=== PATIENT | male | born 2000 | race Two or more races ===

== ENCOUNTER 2021-10-17 17:36 | Emergency (ER) | payer BC, SELFPAY ==
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
[2021-10-17 17:56] VITALS: BP 138/82; PULSE 86; RESP 17; TEMP 37.2; O2SAT 100
--- NOTE | 2021-10-17 18:11 | PC.NURSE ---
1800-- VINEYARD TENDER and pt together decided to have xrays, and we informed him that we will have to send him to the [place] [facility] (Closed) office due to us not having a medical radiation therapist this weekend. report given to abdi pereyra.
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
== END 2021-10-17 19:02 | disposition home or self-care (01) ==
PROVIDERS: Emergency Provider Nurse Practitioner Family
DX: S16.1XXA Strain of muscle, fascia and tendon at neck level, initial encounter (principal); V43.62XA Car passenger injured in collision with other type car in traffic accident, initial encounter; M79.671 Pain in right foot
CPT/HCPCS: 73610; 99213; G0463

== ENCOUNTER 2021-12-21 15:00 | Outpatient (RCR) | payer BC, SELFPAY ==
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
--- NOTE | 2021-10-28 09:35 | PCPTNOTE ---
Patient called & cancelled scheduled appointment this date due to having to work.
--- NOTE | 2021-11-05 08:55 | PCPTNOTE ---
Patient did not show up for scheduled appointment this date. Called and spoke with Pt. He apologized for forgetting about appointment. Reminded Pt of upcoming appointment on 11/09/21 @12:30.
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
--- NOTE | 2021-12-14 09:20 | PCPTNOTE ---
Addendum entered by Renee Edwards, CLIENT ACCOUNT MANAGER 12/14/21 10:54: Patient called back to reschedule appointment due to adjustment with his work schedule being able to attend. Original Note: Patient called & cancelled scheduled appointment this date due to having to work so needed to reschedule appointment.
--- NOTE | 2021-12-20 10:39 | PCPTNOTE ---
Patient did not show up for scheduled appointment this date; called patient who stated he didn't realize he had an appointment for today with his re-eval being tomorrow.
--- NOTE | 2021-12-21 16:13 | PTOPEVAL ---
PHYSICAL THERAPY PROGRESS REPORT. Thank you for referring Dixon Moore to [facility].? The patient will be seen for a follow up, in needed. Please review, sign, date and return this plan of care MAGGI. I agree with and certify that the following plan of care is medically necessary. Referring Physician Date Attending Provider: Julia Winn, PATRICIO *PT Outpatient Evaluation Start: 10/26/21 Evaluation Information Diagnosis neck pain Onset 10/15/21 Subjective Information Pt reports overall he has Query Text:As Reported By Patient/ improved a lot. He states he Family is still having headaches, 3-4 times a week. He states he is moving his neck everyday. Pain Assessment Neck Reported Pain Level 0 Greatest Pain Intensity 6 Cervical ROM Cervical Flexion (0-60) 40 active Cervical Extension (0-70) 45 active Cervical Lateral Flexion Right (0-50) 38 active Cervical Lateral Flexion Right (0-50) 45 passive Cervical Lateral Flexion Left (0-50) 28 active Cervical Lateral Flexion Left (0-50) 45 passive Cervical Rotation Right (0-90) 70 active Cervical Rotation Right (0-90) 70 passive Cervical Rotation Left (0-90) 65 active Cervical Rotation Left (0-90) 70 passive Upper Extremity Muscle Strength Testing General Upper Extremity Strength WFL/Left,WFL/Right Gross Upper Extremity Strength Comments BUE grossly 5/5 Palpation Assessment Palpation mild tenderness in joellen suboccipitals Safety Assessment Factors Affecting Safety No Concerns General Exercise Exercise Description - extensive discussion on Query Text:Record Sets, Reps, limiting fear avoidance Resistance, and Position behaviors. - education on guarding behaviors being a contributing factor in tension headaches Manual Therapy Manual Therapy Side Bilateral Manual Therapy Location cervical/ thoracic Patient Position Prone Manual Therapy Treatment Soft Tissue Mobilization Movement Findings Moderate Hypomobility,Severe Hypomobility Treatment Comments -STM to Upper traps, Query Text:Include Technique and paraspinal and suboccipital Result of Technique region to decreased pain, improved functional mobility, and tissue extensibility - Grade 3 cervical side glide mobs PT Clinical Summary Dixon presents to therapy today for his progress report
--- NOTE | 2022-01-04 14:35 | PCPTNOTE ---
Attending Provider: FEROZ PantojaC Patient:Dixon Moore Date of :2000 PHYSICAL THERAPY DISCHARGE SUMMARY. Patient presents to therapy for his progress report on 12/21/21 and was doing well. He was apprehensive to completly discharge from therapy. He called the clinic today and requested to be discharged as he is still doing great. Patient?s initial visit was on 10/26/2021 and he had a total of 13 visits. The goals have been met.
== END 2022-01-06 13:12 | disposition home or self-care (01) ==
LOC: ANHPT 15:00
PROVIDERS: PCP Internal Medicine; Referring Provider Nurse Practitioner; Visit Provider Nurse Practitioner
DX: M54.2 Cervicalgia (principal)
CPT/HCPCS: 97014; 97110; 97112; 97140; 97161; 97530; 99199; G0283